=== PATIENT | female | born 1975 | race Caucasian/White ===

== ENCOUNTER 2019-11-06 14:17 | Outpatient (CLI) | payer OTHER, SELFPAY ==
[2019-11-06 15:04] LABS: Basophils Absolute Auto 0.1 K/mm3 (0.0-0.1); Basophils Percent Auto 0.5 % (0.2-1.2); Eosinophils Absolute Auto 0.1 K/mm3 (0-0.3); Eosinophils Percent Auto 0.7 % (0-4.4); Immature Granulocyte Absolute 0.04 K/mm3 (0.00-0.031); Immature Granulocyte Percent A 0.4 % (0-0.5); Lymphocytes Percent Auto 24.4 % (18.3-44.2); Mean Corpuscular HGB Conc 32.4 g/dl (32-36); Mean Corpuscular Hemoglobin 28.8 pg (26-34); Mean Corpuscular Volume 88.9 fl (80-100); Mean Platelet Volume 9.3 fl (7.4-10.4); Monocytes Absolute Auto 0.7 K/mm3 (0.1-0.6); Monocytes Percent Auto 6.5 % (2.6-8.5); Neutrophils Absolute Auto 7.5 K/mm3 (1.3-6.7); Neutrophils Percent Auto 67.5 % (45.5-73.1); Platelet Count Result 314 k/mm3 (150-375); Red Blood Count 4.16 M/mm3 (4.2-5.4); Red Cell Distribution Width 14.1 % (11.5-14.5); White Blood Count 11.1 K/mm3 (4.5-10.0)
[2019-11-06 15:54] LABS: Iron 80 ug/dL (37-170)
[2019-11-06 16:04] LABS: Percent Iron Saturation 21 % (20-50)
== END 2019-11-06 14:18 | disposition home or self-care (01) ==
PROVIDERS: PCP Family Medicine
DX: D64.9 Anemia, unspecified (principal); Z85.3 Personal history of malignant neoplasm of breast
CPT/HCPCS: 36415; 83540; 83550; 85025

== ENCOUNTER 2022-02-01 00:10 | Day surgery (SDC) | payer OTHER, SELFPAY ==
[2022-01-18 10:44] VITALS: BMI 28.3
[2022-02-01 07:59] VITALS: BP 114/64; PULSE 75; RESP 18; TEMP 36.2; O2SAT 100; BMI 28.1
[2022-02-01] MEDS: LACTATED RINGERS 1,000 ML 150 ML IV CONT (08:10)
--- NOTE | 2022-02-01 08:34 | WPDGICN ---
Assessment and Plan Assessment and plan (1) Ulcerative colitis: Code(s): K51.90 - Ulcerative colitis, unspecified, without complications Status: Acute Assessment and Plan: Patient has the diagnosis of ulcerative colitis. That clinically this appears to be in remission. Plan is for surveillance colonoscopy now. Further recommendations will be given after endoscopy. Surveillance colonoscopies at intervals is advised. GI Consult Note Consult date/time: 02/01/22 08:34 Reason for consult: History of ulcerative colitis. HPI: Cait Dietz is a 46 year old female Carries a diagnosis of ulcerative colitis. This was diagnosed in the past. Colonoscopy 2013 revealed this to be in remission. Patient has had normal bowel movements since that time. Her current weight appetite and bowel movements are normal. She denies abdominal pain. She has had no bleeding. She currently she takes Colazal but only takes 750mg 1 tablet p.o. daily. Her family history is significant a grandparent may have had ulcerative colitis there is no other family history. Patient presents today for screening surveillance examination. Review of Systems Review of Systems: Review of systems noncontributory. [facility] Social History Social History Smoking status: Never smoker Alcohol intake: never Substance use: never Substance use type: does not use Living arrangements: with family Additional living arrangements comments: life partner Spiritual care concerns: No Meds Home Medications and Allergies Home Medications Medication Instructions Recorded Confirmed Type balsalazide 750 mg capsule 750 mg PO DAILY 01/18/22 01/18/22 History (Colazal) psyllium husk 0.4 gram capsule 1 g PO DAILY 01/18/22 01/18/22 History (Daily Fiber) tamoxifen 20 mg tablet 20 mg PO DAILY 01/18/22 01/18/22 History Allergies Allergy/AdvReac Type Severity Reaction Status Date / Time morphine AdvReac Severe NAUSEA AND Verified 02/01/22 07:58 VOMITING meperidine AdvReac Unknown Nausea and Verified 02/01/22 07:58 Vomiting MEPERIDINE HCL AdvReac Unknown Nausea and Uncoded 01/18/22 11:02 Vomiting Vital Signs Vital Signs - 24 hr 02/01/22 07:59 Temperature 97.1 F L Pulse Rate 75 Respiratory Rate 18 Blood Pressure 114/64 Pulse Oximetry 100 Oxygen Delivery Room Air Exam Narrative: Physical exam reveals patient to be alert. Vital signs stable. HEENT exam is unremarkable. Patient is anicteric. Lungs are clear to auscultation and percussion. Heart is without murmur or extra sounds. Abdominal exam bowel sounds are present soft nontender with no organomegaly. Digital external rectal exam is normal.
--- NOTE | 2022-02-01 08:40 | WPDANESEPPF ---
Anes - Initial Pre Proc Eval Procedure: Operation Date: 02/01/22 09:00 Proposed Procedures p Colonoscopy - Steve Villegas MD Date/Time: 02/01/22 08:40 Surgeon: Steve Villegas MD Pre Op Diagnosis: ulcerative colitis Patient Data Age: 46 Gender: F Height: 1.68 m Weight: 79.1 kg Last Vital Signs Temp 36.2 C L 02/01/22 07:59 Pulse 75 02/01/22 07:59 Resp 18 02/01/22 07:59 BP 114/64 02/01/22 07:59 Pulse Ox 100 02/01/22 07:59 O2 Del Method Room Air 02/01/22 07:59 Allergies Allergy/AdvReac Type Severity Reaction Status Date / Time morphine AdvReac Severe NAUSEA AND Verified 02/01/22 07:58 VOMITING meperidine AdvReac Unknown Nausea and Verified 02/01/22 07:58 Vomiting MEPERIDINE HCL AdvReac Unknown Nausea and Uncoded 01/18/22 11:02 Vomiting Home Medications Medication Instructions Recorded Confirmed Type balsalazide 750 mg capsule 750 mg PO DAILY 01/18/22 01/18/22 History (Colazal) psyllium husk 0.4 gram capsule 1 g PO DAILY 01/18/22 01/18/22 History (Daily Fiber) tamoxifen 20 mg tablet 20 mg PO DAILY 01/18/22 01/18/22 History Patient hx anesthesia problems: none Family hx anesthesia problems: none Results Review: All pre-operative results and documents have been reviewed as part of the pre-operative evaluation. [facility] Past Medical History Medical History (Updated 02/01/22 @ 08:40 by Mukul Hahn MD) Breast cancer Surgical History Surgical History (Updated 02/01/22 @ 08:41 by Mukul Hahn MD) H/O colonoscopy History of mastectomy Social History Social History Smoking status: Never smoker Alcohol intake: never Substance use: never Substance use type: does not use Living arrangements: with family Additional living arrangements comments: life partner Spiritual care concerns: No Anes - Eval Final PreProcedure Day of Procedure 02/01/22 08:40 Patient weight: overweight Heart: regular rate and rhythm Lungs: clear to auscultation Neurological: alert and oriented ASA classification: II Emergent: no Anesthesia type and monitoring: general GIVS and standard monitoring Results Review: All pre-operative results and documents have been reviewed as part of the pre-operative evaluation. Informed Consent: The patient's anesthetic plan and its attendant risks and benefits were discussed with the patient/family/POA. Questions were solicited and answers provided to the satisfaction of the patient/family/POA.
[2022-02-01 09:46] VITALS: BP 93/47; PULSE 64; RESP 18; O2SAT 99
[2022-02-01 09:56] VITALS: BP 109/68; PULSE 66; RESP 18; O2SAT 100
[2022-02-01 10:06] VITALS: BP 112/74; PULSE 58; RESP 20; O2SAT 100
== END 2022-02-01 10:24 | disposition home or self-care (01) ==
PROVIDERS: PCP Family Medicine; Visit Provider Internal Medicine Gastroenterology
PROC: 0DJD8ZZ Inspection of Lower Intestinal Tract, Via Natural or Artificial Opening Endoscopic (ICD-10-PCS; CPT 45378; principal; 2022-02-01 09:00)
DX: K51.90 Ulcerative colitis, unspecified, without complications (principal); Z85.3 Personal history of malignant neoplasm of breast; K52.89 Other specified noninfective gastroenteritis and colitis
CPT/HCPCS: 45380; 88305; J2704; J7120

== ENCOUNTER 2024-10-05 08:05 | Emergency (ER) | payer OTHER, SELFPAY ==
--- NOTE | ~2024-10-05 | XR_ITS ---
EXAMINATION: XR chest 2V DATE: 10/05/2024 08:24 INDICATION: Cough and shortness of breath. TECHNIQUE: Frontal and lateral views of the chest were obtained. COMPARISON: None. FINDINGS: There is no pneumonia, pleural effusion, or pneumothorax. The heart size is normal. IMPRESSION: 1. No acute cardiopulmonary disease. Reviewed, dictated and finalized at location A. [facility]TER ANCHOR
--- NOTE | 2024-10-05 08:06 | ED_ITS ---
HPI - URI/Sore Throat General Chief Complaint: Upper Respiratory Infection Stated Complaint: Flu Symptoms Time Seen by Provider: 10/05/24 08:06 Source: patient Mode of arrival: ambulatory Limitations: no limitations History of Present Illness HPI Narrative: Cait is a 49-year-old immunocompromised female patient presenting to the clinic today with complaints of possible flu-like symptoms. She reports she has had symptoms for 5-6 days. States she had fever of 100 for the beginning however fever has resolved. Is more concerned about cough and chest congestion today as well as having headache. She denies any chest pain but has mild shortness of breath. Cough is productive bringing up some brown green phlegm. She is a nonsmoker. MD elicited complaint: fever, cough and other (Headache) Related Data Home Medications ?Medication ?Instructions ?Recorded ?Confirmed ?Last Taken ?Type psyllium husk 0.4 gram capsule 1 g PO DAILY 01/18/22 05/30/24 Unknown History (Daily Fiber) tamoxifen 20 mg tablet 20 mg PO DAILY 01/18/22 05/30/24 Unknown History Allergies Allergy/AdvReac Type Severity Reaction Status Date / Time morphine AdvReac Severe NAUSEA AND Verified 10/24/23 13:42 VOMITING meperidine AdvReac Unknown Nausea and Verified 10/24/23 13:42 Vomiting MEPERIDINE HCL AdvReac Unknown Nausea and Uncoded 10/24/23 13:42 Vomiting Review of Systems Review of Systems: Pertinent positives per HPI. Patient denies any rash, visual changes, dizziness, sore throat, chest pain, palpitations, nausea, vomiting, diarrhea, constipation, abdominal pain, or any urinary issues. [facility] Past Medical History Medical History Personal history of breast cancer Dx: 2016 Anemia Ulcerative colitis Surgical History Surgical History History of 2011 History of hernia repair Bilateral inguinal, early History of mastectomy 09/2016, left breast Family History Family History Mother Lung cancer Father Non-Hodgkin lymphoma Sibling No problems noted. Social History Social History Smoking packs per day: 0.5 Smoking cigarettes per day: 10.0 Years smoked: 25 Smoking pack-years: 12.50 Smoking status: Former smoker Tobacco type: cigarettes Alcohol intake: current Drinks per week: 3 Substance use: never Substance use type: does not use Do You Feel Safe in your Home?: Yes Lack of Transportation: No Lack of Food: Never True Current Housing: I Have Housing Concerned About Future Housing: No Difficulty Paying Gas/Electric Bills: No Difficulty Paying for Meds: No Currently Unemployed: No Education: Master's Degree or Higher Difficulty w/ Childcare or Family Care: No Living arrangements: with family Additional living arrangements comments: life partner Occupation/Education: occupation Additional occupation/education comments: Teacher Gender identity (if verbalized by the patient): Female Sexual Orientation (if Verbalized by the Patient): Lesbian, Carrero, or Homosexual Spiritual care concerns: No Comments At the time of my signature, I reviewed and agree with the nursing past medical, surgical, social, and family history. There is no relevant family history pertinent to the patient complaint. Exam Narrative: General: Well-developed, well nourished, in no apparent distress Head: Normocephalic, atraumatic Eyes: Pupils equally round and reactive to light bilaterally, EOM intact, sclera and conjunctive clear, no discharge, lids normal Ears: TMs intact and clear, ear canals clear, no drainage, grossly hearing normal. Nose: Nares patent, green nasal discharge, moderate inflammation, no sinus tenderness. Mouth: Oral pharynx without lesions or masses, good dentition, MMM. Postnasal drip Neck: Supple, trachea midline, no enlargement of anterior or posterior cervical nodes, no thyroid masses or goiter palpable. Cardio: Regular rate and rhythm, s1 and s2 normal, no murmur appreciated. Resp: Faint wheezing and crackles heard over the right lower lobe, no rhonchi or rubs Course Course Emergency Course: Portions of this record may have been created with voice recognition software. Level of Care: Express Care Visit Vital Signs Vital signs: Vital signs reviewed MDM - URI/Sore Throat MDM Narrative Medical decision making narrative: At the time of visit patient is resting comfortably on the exam table. Patient appears to be nontoxic. Diagnostics: Chest x-rays negative for any acute cardiopulmonary process. Plan: I suspect patient has bronchitis. Patient is immunocompromised. Will place patient on prednisone, azithromycin, and albuterol inhaler. Supportive measures were discussed with the patient and they voiced understanding discharge instructions and agrees to treatment plan. Return precautions reviewed Differential Diagnosis Differential diagnosis: Likely upper respiratory infection, otitis media, sinusitis, viral infection, bronchitis, influenza, pharyngitis and other (COVID) Imaging Data Radiologist's impression: ITS Impressions Chest X-Ray 10/05/24 08:27 IMPRESSION: 1. No acute cardiopulmonary disease. Discharge Plan Discharge Clinical Impression: Bronchitis Patient Disposition: Home, Self-Care Condition: Stable Instructions: Antibiotic Form, Acute Bronchitis (ED) Additional Instructions: Take prescription medications only as prescribed-prednisone, albuterol inhaler, and azithromycin Increase fluids and stay well hydrated Tylenol/motrin for pain/fever Flonase and OTC antihistamines as directed Vicks vapor rub to open sinuses Sinus rinses for congestion Cepacol spray, cough drops, throat lozenges, warm tea with honey/lemon, gargle salt water to soothe throat BRAT diet for diarrhea Clear liquids x 24 hours then advance as tolerated for nausea/vomiting Go to the ED if you develop a worsening in your condition- high fever not controlled by Tylenol or Motrin, dehydration, weakness, lethargy, shortness of breath, or chest pain. Follow up with your PCP in 3-5 days if symptoms persist. Patient Language: Swedish Prescriptions: New azithromycin 250 mg tablet See Rx Instructions .ROUTE .COMPLEX Qty: 6 0RF Rx Instructions: For 250 mg dose pack: take 500 mg today (day 1), then 250 mg for 4 days (days 2-5) prednisone 20 mg tablet 40 mg PO DAILY 5 Days Qty: 10 0RF albuterol sulfate 90 mcg/actuation HFA aerosol inhaler 2 puff inhalation Q4-6H PRN (Reason: shortness of breath or wheezing) 30 Days Qty: 8.5 0RF No Action famotidine 10 mg tablet 10 mg PO DAILY PRN (Reason: heartburn) Qty: 60 0RF balsalazide 750 mg capsule See Rx Instructions .ROUTE .COMPLEX Qty: 90 11RF Dose Instruction: TAKE 1 CAPSULE THREE TIMES A DAY Rx Instructions: TAKE 1 CAPSULE THREE TIMES A DAY tamoxifen 20 mg tablet 20 mg PO DAILY psyllium husk [Daily Fiber] 0.4 gram Capsule 1 g PO DAILY Follow-up/Referrals: Kiel Huitron MD [Primary Care Provider] - Time of Disposition: 08:38 Quality NIHSS Nursing Documentation ED NIHSS nursing documentation: reviewed/agree
[2024-10-05 08:13] VITALS: BP 116/83; PULSE 95; RESP 20; TEMP 36.4; O2SAT 100
== END 2024-10-05 08:41 | disposition home or self-care (01) ==
PROVIDERS: Emergency Provider Nurse Practitioner Family; PCP Family Medicine
DX: J40 Bronchitis, not specified as acute or chronic (principal); Z87.891 Personal history of nicotine dependence; Z85.3 Personal history of malignant neoplasm of breast; Z90.12 Acquired absence of left breast and nipple
CPT/HCPCS: 71046; 99213; G0463

== ENCOUNTER 2025-07-02 01:12 | Day surgery (SDC) | payer OTHER, SELFPAY ==
[2025-06-24 13:26] VITALS: BMI 29.9
[2025-07-02 06:47] VITALS: BP 114/75; PULSE 74; RESP 16; TEMP 36.1; O2SAT 98; BMI 29.1
[2025-07-02 06:51] LABS: BEDSIDEPREGUCG Negative (Negative)
[2025-07-02] MEDS: LACTATED RINGERS 1,000 ML 150 ML IV CONT (06:58)
--- NOTE | 2025-07-02 07:06 | WPDANESEPPF ---
Anes - Initial Pre Proc Eval Procedure: Operation Date: 07/02/25 08:00 Proposed Procedures p Screening Colonoscopy - Ham Mcadams MD Date/Time: 07/02/25 07:06 Surgeon: Ham Mcadams MD Pre Op Diagnosis: Ulcerative colitis, unspecified, without complicat Patient Data Age: 49 Gender: F Height: 1.68 m Weight: 81.9 kg Last Vital Signs Temp 97 F L 07/02/25 06:47 Pulse 74 07/02/25 06:47 Resp 16 07/02/25 06:47 BP 114/75 07/02/25 06:47 Pulse Ox 98 07/02/25 06:47 O2 Del Method Room Air 07/02/25 06:47 Allergies Allergy/AdvReac Type Severity Reaction Status Date / Time morphine AdvReac Severe NAUSEA AND Verified 07/02/25 06:44 VOMITING meperidine AdvReac Unknown Nausea and Verified 07/02/25 06:44 Vomiting MEPERIDINE HCL AdvReac Unknown Nausea and Uncoded 01/01/25 14:35 Vomiting Home Medications ?Medication ?Instructions ?Recorded ?Confirmed ?Type psyllium husk 0.4 gram capsule 1 g PO DAILY 01/18/22 07/02/25 History (Daily Fiber) tamoxifen 20 mg tablet 20 mg PO DAILY 01/18/22 07/02/25 History famotidine 10 mg tablet 10 mg PO DAILY PRN heartburn #60 10/24/23 06/24/25 Rx tabs balsalazide 750 mg capsule 750 mg PO BID 3 months #180 caps 01/01/25 07/02/25 Rx risankizumab-rzaa 150 mg/mL 150 mg subcut ONCE 01/01/25 06/24/25 History subcutaneous pen injector (Skyrizi) Laboratory Tests 07/02/25 06:46 POC Urine HCG, Qual Negative (Negative) Patient hx anesthesia problems: none Family hx anesthesia problems: none Results Review: All pre-operative results and documents have been reviewed as part of the pre-operative evaluation. [facility] Past Medical History Medical History Plaque psoriasis Personal history of breast cancer Dx: 2016 Anemia Ulcerative colitis Surgical History Surgical History History of 2011 History of hernia repair Bilateral inguinal, early History of mastectomy 09/2016, left breast Family History Family History Mother Lung cancer Father Non-Hodgkin lymphoma Sibling No problems noted. Social History Social History Smoking packs per day: 0.5 Smoking cigarettes per day: 10.0 Years smoked: 25 Smoking pack-years: 12.50 Smoking status: Former smoker Tobacco type: cigarettes Alcohol intake: current Drinks per week: 3 Substance use: never Substance use type: does not use Do You Feel Safe in your Home?: Yes Lack of Transportation: No Lack of Food: Never True Current Housing: I Have Housing Concerned About Future Housing: No Difficulty Paying Gas/Electric Bills: No Difficulty Paying for Meds: No Currently Unemployed: No Education: Master's Degree or Higher Difficulty w/ Childcare or Family Care: No Living arrangements: with family Additional living arrangements comments: with sp Occupation/Education: occupation Additional occupation/education comments: Teacher Gender identity (if verbalized by the patient): Female Sexual Orientation (if Verbalized by the Patient): Lesbian, Carrero, or Homosexual Spiritual care concerns: No Anes - Eval Final PreProcedure Day of Procedure 07/02/25 07:06 Patient weight: overweight Lungs: normal air movement Airway: Mallampati scale class II Neurological: alert and oriented Last oral intake: >/= 8 hours ASA classification: II Emergent: no Anesthetic plan: proceed Anesthesia type and monitoring: general GIVS and standard monitoring Results Review: All pre-operative results and documents have been reviewed as part of the pre-operative evaluation. Pt w UC, hx of breast ca, s/p surgery and on tamoxifen. Exercises 5 x weekly, no cp or sob. Informed Consent: The patient's anesthetic plan and its attendant risks and benefits were discussed with the patient/family/POA. Questions were solicited and answers provided to the satisfaction of the patient/family/POA.
--- NOTE | 2025-07-02 08:00 | PM.IMHP ---
H&P: HPI History of Present Illness Date/Time: 07/02/25 08:00 Chief Complaint: History of ulcerative colitis Narrative: Patient with a diagnosis of ulcerative colitis since 2013, last colonoscopy 5 years ago, finding a few ileal ulcers. She is currently maintained on balsalazide for ulcerative colitis. Now referred for colonoscopy. Review of Systems Review of Systems: All systems reviewed & are unremarkable except as noted in HPI and below PMFSH Past Medical History Medical History Plaque psoriasis Personal history of breast cancer Dx: 2016 Anemia Ulcerative colitis Surgical History Surgical History History of 2011 History of hernia repair Bilateral inguinal, early History of mastectomy 09/2016, left breast Family History Family History Mother Lung cancer Father Non-Hodgkin lymphoma Sibling No problems noted. Social History Social History Smoking packs per day: 0.5 Smoking cigarettes per day: 10.0 Years smoked: 25 Smoking pack-years: 12.50 Smoking status: Former smoker Tobacco type: cigarettes Alcohol intake: current Drinks per week: 3 Substance use: never Substance use type: does not use Do You Feel Safe in your Home?: Yes Lack of Transportation: No Lack of Food: Never True Current Housing: I Have Housing Concerned About Future Housing: No Difficulty Paying Gas/Electric Bills: No Difficulty Paying for Meds: No Currently Unemployed: No Education: Master's Degree or Higher Difficulty w/ Childcare or Family Care: No Living arrangements: with family Additional living arrangements comments: with sp Occupation/Education: occupation Additional occupation/education comments: Teacher Gender identity (if verbalized by the patient): Female Sexual Orientation (if Verbalized by the Patient): Lesbian, Carrero, or Homosexual Spiritual care concerns: No Meds Home Medications and Allergies Home Medications ?Medication ?Instructions ?Recorded ?Confirmed ?Type psyllium husk 0.4 gram capsule 1 g PO DAILY 01/18/22 07/02/25 History (Daily Fiber) tamoxifen 20 mg tablet 20 mg PO DAILY 01/18/22 07/02/25 History famotidine 10 mg tablet 10 mg PO DAILY PRN heartburn #60 10/24/23 06/24/25 Rx tabs balsalazide 750 mg capsule 750 mg PO BID 3 months #180 caps 01/01/25 07/02/25 Rx risankizumab-rzaa 150 mg/mL 150 mg subcut ONCE 01/01/25 06/24/25 History subcutaneous pen injector (Skyrizi) Allergies Allergy/AdvReac Type Severity Reaction Status Date / Time morphine AdvReac Severe NAUSEA AND Verified 07/02/25 06:44 VOMITING meperidine AdvReac Unknown Nausea and Verified 07/02/25 06:44 Vomiting MEPERIDINE HCL AdvReac Unknown Nausea and Uncoded 01/01/25 14:35 Vomiting Vital Signs Vital Signs - 24 hr 07/02/25 06:47 Temperature 97 F L Pulse Rate 74 Respiratory Rate 16 Blood Pressure 114/75 Pulse Oximetry 98 Oxygen Delivery Room Air Exam Const: General: cooperative and healthy appearing Resp: Effort & Inspection: normal respiratory effort and able to speak in complete sentences Auscultation: clear to auscultation bilaterally Cardio: Rate: regular rate Rhythm: regular rhythm GI: Inspection: normal to inspection GI Palp: No No hepatosplenomegaly present Auscultation: normal bowel sounds Rectal Exam: deferred Skin: General skin exam: normal color Psych: Appearance: grossly normal Mental Status: mental status grossly normal Assessment and Plan Assessment and plan (1) Ulcerative colitis: Qualifiers: Ulcerative colitis location: unspecified ulcerative colitis location Digestive disease complication type: without complication Qualified Code(s): K51.90 - Ulcerative colitis, unspecified, without complications Code(s): K51.90 - Ulcerative colitis, unspecified, without complications Status: Acute Assessment and Plan: The patient is deemed a good candidate for the procedure. Consent signed. Will proceed.
--- NOTE | 2025-07-02 08:31 | S_PTH ---
PATIENT: Cait Dietz LOC: [facility] U#:[id number] AGE/SX: 49/F ROOM: RE07/02/[address]: Ham Mcadams MD : 1975 BED: DIS: 07/02/2025 SPEC #: [id number] RECD: 07/02/25 10:12 STATUS: ROHIT RELayton #: [id number] JAMAAL: 07/02/25 08:[address]: Ham Mcadams DEPT: [facility] Surgical RECD BY: Ioana Ryan Tissues: A - Small Bowel Bx B - Colon Biopsy C - Colon Biopsy Procedures: Hematoxylin and Eosin Stain Gross and Microscopic Level 4 Gross and Microscopic Level 5
[2025-07-02 08:32] VITALS: BP 98/51; PULSE 71; RESP 16; O2SAT 99
[2025-07-02 08:42] VITALS: BP 108/67; PULSE 60; RESP 16; O2SAT 100
[2025-07-02 08:52] VITALS: BP 105/72; PULSE 62; RESP 16; O2SAT 100
== END 2025-07-02 09:00 | disposition home or self-care (01) ==
PROVIDERS: Anesthesiology; Visit Provider Internal Medicine Gastroenterology
PROC: 0DJD8ZZ Inspection of Lower Intestinal Tract, Via Natural or Artificial Opening Endoscopic (ICD-10-PCS; CPT 45378; principal; 2025-07-02 08:00)
DX: Z12.11 Encounter for screening for malignant neoplasm of colon (principal); K64.8 Other hemorrhoids; D64.9 Anemia, unspecified; L40.0 Psoriasis vulgaris; Z79.810 Long term (current) use of selective estrogen receptor modulators (SERMs); Z79.85 Long-term (current) use of injectable non-insulin antidiabetic drugs; Z98.890 Other specified postprocedural states; Z90.12 Acquired absence of left breast and nipple; Z87.891 Personal history of nicotine dependence; Z87.11 Personal history of peptic ulcer disease; Z85.3 Personal history of malignant neoplasm of breast; Z87.19 Personal history of other diseases of the digestive system; Z80.1 Family history of malignant neoplasm of trachea, bronchus and lung; Z80.7 Family history of other malignant neoplasms of lymphoid, hematopoietic and related tissues
CPT/HCPCS: 45380; 88305; 88307; J2003; J2704; J7120